=== PATIENT | female | born 1930 | race Caucasian/White ===

== ENCOUNTER → 2016-09-29 | Outpatient (CLI) | payer OTHER ==
[~2016-09-29] MED LIST: ASPI81TA28 PO; CARV25TA2 PO; CLB100 PO; DIGO0.2518 PO; DOCU-94 PO; FLUO1TAB12 PO; FRS/40 PO; LEVO75TA PO; LISI-461 PO; LORA-741 PO; MIRT15TA2 PO; NRN100 PO; NTRGSL/4 UT; POTA-327 PO; SIMV40TA2 PO; TRAM-10 PO; WARF4TAB PO; WARF4TAB8 PO; ZNTT/150 PO
[2016-09-29 16:33] LABS: BASO % 0.6 %; BASO ABS # 0.03 K/uL (0-0.2); COMPLETE YES; EOS % 1.5 %; IG% 0.2 %; LYMPH % 18.1 %; LYMPH ABS # 0.85 K/uL (1.2-3.4); MEAN CELL VOLUME 93.5 fL (80-100); MEAN CORPUSCULAR HEMOGLOBIN 31.2 pg (25-34); MEAN CORPUSCULAR HGB CONC 33.3 g/dl (32-36); MEAN PLATELET VOLUME 10.8 fL (7.4-10.4); MONO % 16.8 %; NEUT % 62.8 %; PLATELET COUNT 143 K/uL (130-400); RED BLOOD COUNT 3.21 M/uL (4.2-5.4)
[2016-09-29 16:54] LABS: BLOOD UREA NITROGEN 76 mg/dl (7-18); BUN/CREATININE RATIO 44.9 (10-20); CARBON DIOXIDE 25 mmol/L (21-32); CHLORIDE 101 mmol/L (98-107); GLUCOSE 95 mg/dl (70-99); POTASSIUM 5.3 mmol/L (3.5-5.1); SODIUM 134 mmol/L (136-145)
== END | disposition home or self-care (01) ==
LOC: C.LAB1850 15:11
PROVIDERS: ATTEND Internal Medicine
DX: D64.9 Anemia, unspecified (principal); E03.9 Hypothyroidism, unspecified; G62.9 Polyneuropathy, unspecified

== ENCOUNTER → 2016-10-19 | Outpatient (CLI) | payer OTHER ==
[2016-10-19 15:47] LABS: BLOOD UREA NITROGEN 76 mg/dl (7-18); BUN/CREATININE RATIO 36.3 (10-20); CALCIUM 8.9 mg/dl (8.5-10.1); CARBON DIOXIDE 24 mmol/L (21-32); CHLORIDE 99 mmol/L (98-107); GLUCOSE 113 mg/dl (70-99); POTASSIUM 4.7 mmol/L (3.5-5.1); SODIUM 135 mmol/L (136-145)
--- NOTE | 2016-10-22 07:35 | CODING QUERY NO DIAGNOSIS ---
Valid Physician Order Needed A valid physician order must be submitted in order to properly bill for the service(s) provided, including date of service(s), valid diagnosis, and physician signature. If these tests are done on a recurring basis the original physican order must be submitted in order to code and bill for the service(s) provided. Please fax us the original, signed physician order so that we may expedite billing to [phone] DOS 10/19/16 * PRP ORDERED BY DR. MCQUEEN Thank you Kimberly [facility] Information Management
== END | disposition home or self-care (01) ==
LOC: C.LABSPEC 14:05
PROVIDERS: ATTEND Internal Medicine
DX: I50.9 Heart failure, unspecified (principal); I25.10 Atherosclerotic heart disease of native coronary artery without angina pectoris; R89.9 Unspecified abnormal finding in specimens from other organs, systems and tissues

== ENCOUNTER → 2016-10-25 | Outpatient (CLI) | payer OTHER ==
[2016-10-25 17:25] LABS: URINE APPEARANCE CLEAR (CLEAR); URINE BILIRUBIN NEG (NEG); URINE COLOR YELLOW; URINE NITRITE NEG (NEG); URINE SPECIFIC GRAVITY 1.008 (1.000-1.030); UROBILINOGEN NEG (NEG)
[2016-10-25 17:28] LABS: MANUAL MICROSCOPIC REQUIRED? NO; REVIEW REQ? NO
--- NOTE | 2016-11-10 13:24 | CODING QUERY NO DIAGNOSIS ---
Valid Physician Order Needed A valid physician order must be submitted in order to properly bill for the service(s) provided, including date of service(s), valid diagnosis, and physician signature. If these tests are done on a recurring basis the original physican order must be submitted in order to code and bill for the service(s) provided. Please fax us the original, signed physician order so that we may expedite billing to [phone] DOS 10/25/16 * URINE CULTURE CATH * UA CATH Thank you Roseanne [facility] Information Management
== END | disposition home or self-care (01) ==
LOC: C.LABSPEC 12:34
PROVIDERS: ATTEND Internal Medicine
DX: N39.41 Urge incontinence (principal); I50.9 Heart failure, unspecified

== ENCOUNTER 2016-10-27 09:58 | Emergency (ER) | payer OTHER ==
[~2016-10-27] VITALS: Ht 152.4 cm; Wt 73.7 kg
[~2016-10-27 09:58] MED LIST changes: -ASPI81TA28 PO; -CARV25TA2 PO; -CLB100 PO; -DIGO0.2518 PO; -FLUO1TAB12 PO; -LISI-461 PO; -LORA-741 PO; -NRN100 PO; -NTRGSL/4 UT; -POTA-327 PO; -SIMV40TA2 PO; -WARF4TAB PO; -WARF4TAB8 PO; -ZNTT/150 PO
[2016-10-27 10:04] VITALS: TEMP 36.8; Ht 152.4 cm; Wt 73.7 kg
[2016-10-27] MEDS ORDERED: LEVALBUTEROL 1.25MG/0.5ML NEB INH STA (10:15)
[2016-10-27] MEDS ORDERED: IPRATROPIUM BROMIDE NEB SOLN 0.02% 2.5 ML VIAL INH STA (10:15)
[2016-10-27 10:24] VITALS: O2SAT 98
[2016-10-27 10:44] VITALS: PULSE 81; O2SAT 97
--- NOTE | 2016-10-27 10:44 | EMERGENCY ROOM VISIT NOTE ---
History Report prepared by Ramona: Natalio Doanld Under the Supervision of: Dr. Thomas Cid M.D. First contact with patient: 10:10 Chief Complaint: LEG PAIN,LEG INJURY Stated Complaint: PAIN ALL OVER History of Present Illness The patient is an 86 year old female who presents to the Emergency Room with complaints of worsening swelling of the left leg for the past three days. The swelling became much worse overnight, as per the patient's junior legal secretary. The patient does have some swelling in both legs at baseline, for which she takes Lasix 40 mg. The junior legal secretary notes that the patient's Lasix dose was decreased recently. The patient also has some persistent clear fluid leaking from a skin tear on the left lower leg. The patient's junior legal secretary also notes that the patient has some shortness of breath. She has not had any fevers or vomiting. She has had low blood pressure and increased pulse rate lately. The patient did not fall or injure the left leg. The patient receives hospice care at her home. She does not take any breathing treatments. The patient is on Coumadin and baby Aspirin daily. Source of History: caregiver Onset: three days Position: leg (left) Quality: other (swelling) Timing: worsening Associated Symptoms: + SOB, No fevers, No vomiting Review of Systems See HPI for pertinent positives & negatives. A total of 10 systems reviewed and were otherwise negative. 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, [place] OR GRAFT (5) DIVERTICULOSIS COLON (W/O MENT OF HEMORRHAGE) Family History FH: HTN (hypertension) Social History Smoking Status: Unknown if Ever Smoked Alcohol Use: none Drug Use: none Marital Status: Housing Status: lives with family Occupation Status: retired Current/Historical Medications Scheduled Aspirin (Aspirin Ec), 81 MG PO DAILY Carvedilol (Coreg), 25 MG PO BIDM Celecoxib (Celebrex), 1 CAP PO DAILY Digoxin (Lanoxin), 0.25 MG PO QPM Fluoxetine Hcl (Fluoxetine Hcl), 40 MG PO DAILY Furosemide (Lasix), 80 MG PO DAILY Gabapentin (Gabapentin), 100 MG PO HS Levothyroxine Sodium (Synthroid), 75 MCG PO DAILY Lisinopril (Lisinopril), 10 MG PO DAILY Potassium Ext Rel (Klor-Con), 10 MEQ PO DAILY Ranitidine (Zantac), 150 MG PO BID Simvastatin (Zocor), 40 MG PO HS Warfarin Sod (Jantoven), 4 MG PO 5XWK Warfarin Sodium (Coumadin), 2 MG PO TUES,THURS Scheduled PRN Docusate Sodium (Colace), 1 CAP PO DAILY PRN for Constipation Lorazepam (Ativan), 0.5 MG PO QPM PRN for Anxiety Nitroglycerin (Nitrostat), 0.4 MG UT UD PRN for Chest Pain Allergies Coded Allergies: Sulfamethoxazole w/Trimethoprim (Verified Adverse Reaction, Unknown, Nausea/Vomiting, 04/10/15) Reported by daughter. Physical Exam Vital Signs Date Time Temp Pulse Resp B/P Pulse Ox O2 Delivery O2 Flow Rate FiO2 10/27/16 15:24 82 20 94/72 10/27/16 13:52 87 16 101/58 97 Room Air 10/27/16 13:51 85 10/27/16 12:04 79 20 127/82 97 Room Air 10/27/16 10:44 81 16 97 Room Air 10/27/16 10:43 78 10/27/16 10:24 98 Room Air 10/27/16 10:04 36.8 95 26 90/66 98 Room Air Physical Exam GENERAL: Patient is in no acute distress. HEENT: No acute trauma, normocephalic atraumatic, mucous membranes moist, no nasal congestion, no scleral icterus. NECK: No stridor, no adenopathy, no meningismus, trachea is midline. LUNGS: Diminished breath sounds with some crackles and wheezing bilaterally, breath sounds are equal. HEART: 2/6 systolic murmur with a somewhat irregular rhythm and a normal rate. ABDOMEN: Soft, nontender, bowel sounds positive, no hernias, no peritonitis. EXTREMITIES: Bilateral pedal edema, worse on the left. There is some clear fluid oozing from a superficial skin tear to the left leg, no sign of cellulitis or infection, no sign for lower extremity fracture clinically. NEUROLOGIC: Dementia noted, moving all extremities, awake. SKIN: No rash, no jaundice, no diaphoresis. Medical Decision & Procedures ER Provider Diagnostic Interpretation: X ray results and stated below per my interpretation and radiologist interpretation. Other radiology results and stated below per my review and radiologist interpretation: CHEST ONE VIEW PORTABLE CLINICAL HISTORY: Altered mental status. Generalized pain. COMPARISON STUDY: 07/13/2016 FINDINGS: There is persistent marked enlargement of the cardiac silhouette. There is a left subclavian dual-chamber central venous pacemaker present. There is no lobar consolidation. There is mild central vascular prominence. There is minor blunting of right lateral costophrenic angle suggesting a trace effusion.[ IMPRESSION: 1. Marked enlargement of the cardiac silhouette 2. Suspected trace right pleural effusion 3. Mild central vascular prominence. No evidence of overt edema 4. No evidence of lobar consolidation Electronically signed by: Zeeshan Ellsworth M.D. 10/27/2016 10:54 AM Dictated Date/Time: 10/27/2016 10:53 AM ULTRASOUND VENOUS DOPPLER LWR EXT BILA CLINICAL HISTORY: Leg swelling. COMPARISON STUDY: No previous studies for comparison. FINDINGS: The study was difficult from a technical standpoint. Real-time and color flow Doppler imaging were performed. Flow was seen within the femoral, popliteal and calf veins with no intraluminal thrombus demonstrated. The saphenous vein is patent. IMPRESSION: No evidence of lower extremity DVT. Electronically signed by: Zeeshan Ellsworth M.D. 10/27/2016 12:56 PM Dictated Date/Time: 10/27/2016 12:56 PM Laboratory Results 10/27/16 11:10 Red Blood Count 3.54, Mean Corpuscular Volume 89.8, Mean Corpuscular Hemoglobin 29.7, Mean Corpuscular Hemoglobin Concent 33.0, Mean Platelet Volume 10.6, Neutrophils (%) (Auto) 75.6, Lymphocytes (%) (Auto) 6.9, Monocytes (%) (Auto) 16.2, Eosinophils (%) (Auto) 0.8, Basophils (%) (Auto) 0.2, Neutrophils # (Auto ) 4.79, Lymphocytes # (Auto) 0.44, Monocytes # (Auto) 1.03, Eosinophils # (Auto ) 0.05, Basophils # (Auto) 0.01 10/27/16 10:57 Test 10/27/16 10:40 10/27/16 10:57 10/27/16 11:10 Urine Color YELLOW Urine Appearance CLEAR (CLEAR) Urine pH 5.0 (4.5-7.5) Urine Specific [place] 1.008 (1.000-1.030) Urine Protein 1+ (NEG) Urine Glucose (UA) NEG (NEG) Urine Ketones NEG (NEG) Urine Occult Blood NEG (NEG) Urine Nitrite NEG (NEG) Urine Bilirubin NEG (NEG) Urine Urobilinogen NEG (NEG) Urine Leukocyte Esterase NEG (NEG) Urine WBC (Auto) 0 /hpf (0-5) Urine RBC (Auto) 0-4 /hpf (0-4) Urine Hyaline Casts (Auto) 1-5 /lpf (0-5) Urine Epithelial Cells (Auto) 5-10 /lpf (0-5) Urine Bacteria (Auto) NEG (NEG) Prothrombin Time 19.3 SECONDS (9.0-12.0) Prothromb Time International Ratio 1.8 (0.9-1.1) Activated Partial Thromboplast Time 36.3 SECONDS (21.0-31.0) Partial Thromboplastin Ratio 1.4 Anion Gap 11.0 mmol/L (3-11) Est Creatinine Clear Calc Drug Dose 16.9 ml/min Estimated GFR () 23.9 Estimated GFR (Non- 20.6 BUN/Creatinine Ratio 37.5 (10-20) Lactic Acid Level 1.6 mmol/L (0.4-2.0) Calcium Level 8.5 mg/dl (8.5-10.1) Total Bilirubin 1.0 mg/dl (0.2-1) Aspartate Amino Transf (AST/SGOT) 37 U/L (15-37) Alanine Aminotransferase (ALT/SGPT) 148 U/L (12-78) Alkaline Phosphatase 103 U/L (45-117) Troponin I 0.233 ng/ml (0-0.045) Pro-B-Type Natriuretic Peptide 67066 pg/ml (0-1800) Total Protein 6.5 gm/dl (6.4-8.2) Albumin 3.2 gm/dl (3.4-5.0) Globulin 3.3 gm/dl (2.5-4.0) Albumin/Globulin Ratio 1.0 (0.9-2) Digoxin Level 2.4 ng/ml (0.8-2.0) White Blood Count 6.34 K/uL (4.8-10.8) Red Blood Count 3.54 M/uL (4.2-5.4) Hemoglobin 10.5 g/dL (12.0-16.0) Hematocrit 31.8 % (37-47) Mean Corpuscular Volume 89.8 fL (80-100) Mean Corpuscular Hemoglobin 29.7 pg (25-34) Mean Corpuscular Hemoglobin Concent 33.0 g/dl (32-36) Platelet Count 171 K/uL (130-400) Mean Platelet Volume 10.6 fL (7.4-10.4) Neutrophils (%) (Auto) 75.6 % Lymphocytes (%) (Auto) 6.9 % Monocytes (%) (Auto) 16.2 % Eosinophils (%) (Auto) 0.8 % Basophils (%) (Auto) 0.2 % Neutrophils # (Auto) 4.79 K/uL (1.4-6.5) Lymphocytes # (Auto) 0.44 K/uL (1.2-3.4) Monocytes # (Auto) 1.03 K/uL (0.11-0.59) Eosinophils # (Auto) 0.05 K/uL (0-0.5) Basophils # (Auto) 0.01 K/uL (0-0.2) RDW Standard Deviation 48.4 fL (36.4-46.3) RDW Coefficient of Variation 14.7 % (11.5-14.5) Immature Granulocyte % (Auto) 0.3 % Immature Granulocyte # (Auto) 0.02 K/uL (0.00-0.02) Laboratory results reviewed by me. Medications Administered Medications (Trade) Dose Ordered Sig/Ellyn Route Start Time Stop Time Status Last Admin Dose Admin Levalbuterol (Xopenex 1.25MG/ 0.5ML Neb) 1.25 mg NOW STAT INH 10/27/16 10:15 10/27/16 10:20 DC 10/27/16 10:43 1.25 MG Ipratropium [place] (Atrovent 0.02% 0.5MG/2.5ML Neb) 0.5 mg NOW STAT INH 10/27/16 10:15 10/27/16 10:20 DC 10/27/16 10:43 0.5 MG Furosemide (Lasix Inj) 40 mg NOW STAT IV 10/27/16 13:34 10/27/16 13:35 DC 10/27/16 13:51 40 MG ECG Indication: SOB/dyspnea Rate (beats per minute): 94 Rhythm: other (Ventricular paced rhythm) Findings: no ectopy, other (significant baseline artifact) ED Course 1011: The patient was evaluated in room C5. A complete history and physical exam was performed. 1015: Atrovent 0.02% 0.5MG/2.5ML Neb 0.5 mg INH, Xopenex 1.25MG/0.5ML Neb 1.25 mg INH. 1328: Spoke with the patient's family. They would like her to go home if possible. She will be given some Lasix. 1334: Lasix 40 mg IV. 1410: Spoke with the patient's PCP, Dr. Causey (Family Medicine). He would like to make some adjustment's to the patient' Lasix dosage. She can go home. 1425: Reassessed the patient. Discussed the treatment plan with her and her family. They verbalized understanding and agreement. The patient is ready for discharge. Medical Decision Differential diagnosis includes fluid overload, CHF, renal failure electrolyte imbalance, anemia, infection, sepsis. There is no leukocytosis or concerning anemia. Renal panel testing shows a mildly elevated potassium, there was some renal insufficiency but this appears baseline. There was no hepatitis. INR is elevated consistent with someone using Coumadin. Lactic acid level was not elevated making sepsis less likely. EKG shows a ventricular pacemaker, Cardiac enzyme testing times one is slightly elevated but this has been the case in the past. Her troponin values are about baseline. Chest x-ray shows cardiomegaly, there was some mild CHF. BNP was elevated consistent with fluid overload. Bilateral lower extremity ultrasound did not show evidence for DVT. I could not find evidence for cellulitis based on exam. Digoxin level was slightly high, patient though is in no distress from this value. Urinalysis does not show infection. The patient did receive a dose of IV Lasix. I discussed the patient's disposition with the family. I talked with Dr. Glynn Causey, the family doctor. The decision has been made to send the patient home to continue her hospice care. Comfort measures only. We have made some adjustments to her Lasix dosing. Her other meds are to stay the same except she will stop her trazodone. Family was comfortable with this plan, they understand that her life is close to its end. Consults Time Called: 1400 Consulting Physician: Dr. Causey (Family Medicine) Returned Call: [phone]: Spoke with the patient's PCP, Dr. Causey (Family Medicine). He would like to make some adjustment's to the patient' Lasix dosage. She can go home. Impression Primary Impression: Pedal edema Additional Impression: Fluid overload Scribe Attestation The scribe's documentation has been prepared under my direction and personally reviewed by me in its entirety. I confirm that the note above accurately reflects all work, treatment, procedures, and medical decision making performed by me. Departure Information Dispostion Home / Self-Care Referrals Glynn Causey M.D. (PCP) Forms HOME CARE DOCUMENTATION FORM, IMPORTANT VISIT INFORMATION Patient Instructions My [facility] Additional Instructions lasix 80 mg tomorrow and then start alternating daily between 80 mg and 40 mg stop the Trazadone talke with Dr. Causey about how things are going return with any concerns Problem Qualifiers
--- NOTE | 2016-10-27 10:55 | DIAGNOSTIC IMAGING REPORT ---
CHEST ONE VIEW PORTABLE CLINICAL HISTORY: Altered mental status. Generalized pain. COMPARISON STUDY: 07/13/2016 FINDINGS: There is persistent marked enlargement of the cardiac silhouette. There is a left subclavian dual-chamber central venous pacemaker present. There is no lobar consolidation. There is mild central vascular prominence. There is minor blunting of right lateral costophrenic angle suggesting a trace effusion.[ IMPRESSION: 1. Marked enlargement of the cardiac silhouette 2. Suspected trace right pleural effusion 3. Mild central vascular prominence. No evidence of overt edema 4. No evidence of lobar consolidation Electronically signed by: Zeeshan Elslworth M.D. 10/27/2016 10:54 AM Dictated Date/Time: 10/27/2016 10:53 AM
[2016-10-27] MEDS ORDERED: FRS/40 PO (11:02)
[2016-10-27] MEDS ORDERED: CLB100 PO (11:02)
[2016-10-27 11:05] LABS: URINE APPEARANCE CLEAR (CLEAR); URINE BILIRUBIN NEG (NEG); URINE COLOR YELLOW; URINE NITRITE NEG (NEG); URINE SPECIFIC GRAVITY 1.008 (1.000-1.030); UROBILINOGEN NEG (NEG); ZZURINE CULT IF INDIC CATH NO
[2016-10-27] MEDS ORDERED: DOCU-94 PO (11:05)
[2016-10-27 11:10] LABS: MANUAL MICROSCOPIC REQUIRED? NO; REVIEW REQ? NO
[2016-10-27 11:28] LABS: INR 1.8 (0.9-1.1); PARTIAL THROMBOPLASTIN RATIO 1.4; PROTHROMBIN TIME (PATIENT) 19.3 SECONDS (9.0-12.0)
[2016-10-27 11:28] LABS: BASO % 0.2 %; BASO ABS # 0.01 K/uL (0-0.2); COMPLETE YES; EOS % 0.8 %; HEMATOCRIT 31.8 % (37-47); IG% 0.3 %; LYMPH % 6.9 %; LYMPH ABS # 0.44 K/uL (1.2-3.4); MEAN CELL VOLUME 89.8 fL (80-100); MEAN CORPUSCULAR HEMOGLOBIN 29.7 pg (25-34); MEAN PLATELET VOLUME 10.6 fL (7.4-10.4); MONO % 16.2 %; NEUT % 75.6 %; PLATELET COUNT 171 K/uL (130-400); RED BLOOD COUNT 3.54 M/uL (4.2-5.4); WHITE BLOOD COUNT 6.34 K/uL (4.8-10.8)
[2016-10-27 11:31] LABS: BUN/CREATININE RATIO 37.5 (10-20); CALCIUM 8.5 mg/dl (8.5-10.1); CREATININE 2.1 mg/dl (0.60-1.20); POTASSIUM 5.4 mmol/L (3.5-5.1)
--- NOTE | 2016-10-27 12:58 | DIAGNOSTIC IMAGING REPORT ---
ULTRASOUND VENOUS DOPPLER LWR EXT BILA CLINICAL HISTORY: Leg swelling. COMPARISON STUDY: No previous studies for comparison. FINDINGS: The study was difficult from a technical standpoint. Real-time and color flow Doppler imaging were performed. Flow was seen within the femoral, popliteal and calf veins with no intraluminal thrombus demonstrated. The saphenous vein is patent. IMPRESSION: No evidence of lower extremity DVT. Electronically signed by: Zeeshan Ellsworth M.D. 10/27/2016 12:56 PM Dictated Date/Time: 10/27/2016 12:56 PM
[2016-10-27] MEDS ORDERED: FUROSEMIDE 40 MG/4 ML VIAL IV STA (13:34)
[2016-10-27 13:52] VITALS: O2SAT 97
[2016-10-27] MEDS ORDERED: NTRGSL/4 UT (14:34)
[2016-10-27] MEDS ORDERED: DIGO0.2518 PO (14:34)
[2016-10-27] MEDS ORDERED: ZNTT/150 PO (14:34)
[2016-10-27] MEDS ORDERED: SIMV40TA2 PO (14:34)
[2016-10-27 15:24] VITALS: BP 94/72; PULSE 82
[2016-10-27] MEDS ORDERED: LORA-741 PO (15:58)
[2016-10-27] MEDS ORDERED: NRN100 PO (15:58)
[2016-10-27] MEDS ORDERED: WARF4TAB8 PO (15:58)
[2016-10-27] MEDS ORDERED: LISI-461 PO (15:58)
[2016-10-27] MEDS ORDERED: WARF4TAB PO (16:30)
[2016-10-27] MEDS ORDERED: CARV25TA2 PO (17:05)
[2016-10-27] MEDS ORDERED: ASPI81TA28 PO (17:05)
[2016-10-27] MEDS ORDERED: FLUO1TAB12 PO (18:47)
[2016-10-27] MEDS ORDERED: POTA-327 PO (18:50)
== END 2016-10-27 15:40 | disposition home or self-care (01) ==
LOC: EDBD 09:58 → C.EDC 10:00
DX: R60.0 Localized edema (principal); E87.70 Fluid overload, unspecified; I48.91 Unspecified atrial fibrillation; I25.10 Atherosclerotic heart disease of native coronary artery without angina pectoris; Z82.49 Family history of ischemic heart disease and other diseases of the circulatory system; Z79.01 Long term (current) use of anticoagulants; Z79.82 Long term (current) use of aspirin; Z79.899 Other long term (current) drug therapy